=== PATIENT | male | born 1965 | race Caucasian/White ===

== ENCOUNTER 2023-05-01 12:25 | Emergency (ER) | payer MEDICAID ==
[~2023-05-01] VITALS: Ht 175.3 cm; Wt 68.0 kg
[2023-05-01 21:50] LABS: BASOPHILS # (AUTO) 0.2 X10'3 (0-0.2); BASOPHILS % (AUTO) 1.4 % (0-1); EOSINOPHILS % (AUTO) 0.3 % (0-6); HEMATOCRIT 35.3 % (42.0-52.0); HEMOGLOBIN 11.9 g/dl (14.0-17.9); LYMPHOCYTES # (AUTO) 1.5 X10'3 (1.1-4.8); LYMPHOCYTES % (AUTO) 12.9 % (21-51); MEAN CORPUSCULAR HEMOGLOBIN 33.9 PG (27.0-31.0); MEAN CORPUSCULAR HGB CONC 33.7 g/dL (33.0-36.5); MEAN CORPUSCULAR VOLUME 100.6 FL (78-98); MEAN PLATELET VOLUME 8.8 FL (7.4-10.4); MONOCYTES % (AUTO) 8.2 % (2-12); NEUTROPHILS % (AUTO) 77.2 % (42-75); PLATELET COUNT 376 X10'3 (140-440); RED BLOOD COUNT 3.51 X10'6 (4.70-6.10); RED CELL DISTRIBUTION WIDTH 12.9 % (11.5-14.5); WHITE BLOOD COUNT 11.6 X10'3 (4.5-11.0)
[2023-05-01 22:03] LABS: ALANINE AMINOTRANSFERASE 27 U/L (12-78); ALBUMIN 2.9 G/DL (3.4-5.0); ALBUMIN/GLOBULIN RATIO 0.6 (1.1-1.5); ALKALINE PHOSPHATASE 172 IU/L (46-116); ANION GAP 9 (8-16); ASPARTATE AMINO TRANSFERASE 16 U/L (10-37); BILIRUBIN,TOTAL 0.5 MG/DL (0.1-1.0); BLOOD UREA NITROGEN 13 MG/DL (7-18); BUN/CREATININE RATIO 15.7 (10.0-20.0); CALCIUM 9.6 MG/DL (8.5-10.1); CHLORIDE 102 MMOL/L (99-107); CREATININE 0.83 MG/DL (0.60-1.10); GLUCOSE 103 MG/DL (70-104); POTASSIUM 4.2 MMOL/L (3.5-5.1); SODIUM 141 MMOL/L (135-145); TOTAL CARBON DIOXIDE 30.2 MMOL/L (24-32); TOTAL PROTEIN 7.5 G/DL (6.4-8.2); eCRCL 97 ML/MIN; eGFR > 90 ML/MIN
[2023-05-01 22:06] LABS: MAGNESIUM 1.9 MG/DL (1.5-2.4); URIC ACID 4.9 MG/DL (3.5-7.2)
[2023-05-01 23:33] LABS: RHEUM FACTOR QUAL REFLEX TITER NEGATIVE (Neg)
[2023-05-01 23:44] LABS: BILIRUBIN,URINE NEGATIVE (Neg); CLARITY,URINE CLEAR (Clear); COLOR,URINE YELLOW (Yellow); GLUCOSE, URINE NEGATIVE (Neg); KETONES,URINE TRACE mg/dl (Neg); LEUKOCYTE ESTERASE ,URINE NEGATIVE (Neg); NITRITES, URINE NEGATIVE (Neg); OCCULT BLOOD,URINE NEGATIVE (Neg); PROTEIN,URINE TRACE mg/dl (Neg)
[2023-05-01 23:45] LABS: UA COLLECTION TYPE URINAL; URINE AMPHETAMINE SCREEN NEGATIVE (Neg); URINE BARBITUATE SCREEN NEGATIVE (Neg); URINE BENZODIAZEPINES SCREEN NEGATIVE (Neg); URINE CANNABINOID SCREEN POSITIVE (Neg); URINE COCAINE SCREEN NEGATIVE (Neg); URINE METHADONE SCREEN NEGATIVE (Neg); URINE OPIATE SCREEN NEGATIVE (Neg); URINE PHENCYCLIDINE SCREEN NEGATIVE (Neg)
[2023-05-01 23:50] LABS: RED BLOOD COUNT 3.46 X10'6 (4.70-6.10); RETICULOCYTE % (AUTO) 0.7 % (0.5-1.5)
[2023-05-01 23:51] LABS: BACTERIA,URINE NONE SEEN /HPF (Neg); MUCUS STRANDS MANY /LPF (Neg); RBC,URINE 0-2 /HPF (0-2); SQUAMOUS EPITHELIAL CELL,UR FEW /LPF (FEW); WBC,URINE 0-4 /HPF (0-4)
[2023-05-02 00:04] LABS: APTT 29 SECONDS (22-32); PROTHROMBIN TIME 10.9 SECONDS (9.0-12.0)
[2023-05-02 00:51] LABS: FIBRINOGEN 662 MG/DL (177-424)
[2023-05-02 01:21] LABS: ETHANOL < 10 MG/DL (<10); THYROID STIMULATING HORMONE 1.69 ulU/ml (0.34-4.50)
[2023-05-02] MEDS ORDERED: dexamethasone 4mg tablet PO ONE (02:15)
[2023-05-02] MEDS ORDERED: DEC4T PO (02:16)
[2023-05-02 02:33] VITALS: BP 147/89; PULSE 77; RESP 12; TEMP 98.8; O2SAT 99
== END 2023-05-02 02:35 | disposition home or self-care (01) ==
LOC: ER 12:25
DX: M13.842 Other specified arthritis, left hand (principal); M13.841 Other specified arthritis, right hand; M13.872 Other specified arthritis, left ankle and foot; M13.871 Other specified arthritis, right ankle and foot
CPT/HCPCS: 36415; 71045; 80053; 80305; 80320; 81001; 83605; 83735; 84145; 84443; 84484; 84550; 85025; 85045; 85384; 85610; 85651; 85730; 86038; 86140; 86430; 87040; 87502; 87503; 93005; 99285